=== PATIENT | female | born 1995 | race American Indian/Alaskan Native ===

== ENCOUNTER 2022-01-06 17:23 | Emergency (ER) | payer SELFPAY ==
[2022-01-06] MEDS ORDERED: IPRATROPIUM 0.02% NEBU 2.5 ML IH ONE (17:37)
[2022-01-06] MEDS ORDERED: ALBUTEROL 2.5 MG/3 ML NEBU IH ONE (17:37)
[2022-01-06] MEDS ORDERED: SODIUM CHLORIDE 0.9% 1000 ML 1,000 ML IV ONE (17:37)
--- NOTE | 2022-01-06 18:19 | XRay Report ---
CHEST 1 VIEW INDICATION / CLINICAL INFORMATION: Asthma. COMPARISON: None available. FINDINGS: SUPPORT DEVICES: None. HEART / MEDIASTINUM: No significant abnormality. LUNGS / PLEURA: No significant pulmonary or pleural abnormality. No pneumothorax. ADDITIONAL FINDINGS: No significant additional findings. IMPRESSION: 1. No acute findings. Signer Name: Wesley Umanzor MD Signed: 01/06/2022 6:15 PM Workstation Name: [id number]
[2022-01-06] MEDS ORDERED: KETOROLAC 30 MG/1 ML INJ IV ONE (19:27)
[2022-01-06 19:35] VITALS: BP 140/83
[2022-01-06 19:44] LABS: Hematocrit 39.5 % (30.3-42.9); Hemoglobin 12.9 gm/dl (10.1-14.3); Mean Corpuscular HGB Conc 33 % (30-34); Mean Corpuscular Volume 82 fl (79-97); Platelet Count 376 K/mm3 (140-440); Red Blood Count 4.82 M/mm3 (3.65-5.03); Red Cell Distribution Width 13.7 % (13.2-15.2)
[2022-01-06 20:09] LABS: Alanine Aminotransferase 12 units/L (7-56); Albumin 4.3 g/dL (3.9-5); Blood Urea Nitrogen 10 mg/dL (7-17); Hemolysis Index 3
[2022-01-06 20:17] LABS: BUN/Creatinine Ratio 14
--- NOTE | 2022-01-06 20:28 | Emergency Department Report ---
ED Asthma HPI - General Chief Complaint: Adult Asthma Stated Complaint: ASTHMA Time Seen by Provider: 01/06/22 17:37 Source: EMS Mode of arrival: Ambulatory Limitations: No Limitations - History of Present Illness Initial Comments: Asthma exacerbation receieved albuterol, solumedrol and 2 g of mag in route pt was brought in by [facility] for asthma exacerbation , was found wit o2 sat in 80s, given rt and mag and sterids, was better here staurating 100 on 2 litres, no fever no cough - Related Data Previous Rx's Medication Instructions Recorded Last Taken Type Albuterol Mdi (or & Nicu Only) 2 puff IH QID PRN #8.5 gram 01/06/22 Unknown Rx [ProAir HFA Inhaler] methylPREDNISolone [Medrol 4MG 4 mg PO DAILY #1 01/06/22 Unknown Rx DOSEPAK (21 tabs)] Allergies Allergy/AdvReac Type Severity Reaction Status Date / Time No Known Allergies Allergy Unverified 01/06/22 17:32 ED Review of Systems ROS: Stated complaint: ASTHMA Other details as noted in HPI Constitutional: denies: chills, fever Eyes: denies: eye pain, eye discharge, vision change ENT: denies: ear pain, throat pain Respiratory: denies: cough, shortness of breath, wheezing Cardiovascular: denies: chest pain, palpitations Endocrine: no symptoms reported Gastrointestinal: denies: abdominal pain, nausea, diarrhea Genitourinary: denies: urgency, dysuria, discharge Musculoskeletal: denies: back pain, joint swelling, arthralgia Skin: denies: rash, lesions Neurological: denies: headache, weakness, paresthesias Psychiatric: denies: anxiety, depression Hematological/Lymphatic: denies: easy bleeding, easy bruising ED Past Medical Hx - Past Medical History Hx Asthma: Yes - Medications Home Medications: Home Medications Medication Instructions Recorded Confirmed Last Taken Type Albuterol Mdi (or & Nicu Only) 2 puff IH QID PRN #8.5 gram 01/06/22 Unknown Rx [ProAir HFA Inhaler] methylPREDNISolone [Medrol 4MG 4 mg PO DAILY #1 01/06/22 Unknown Rx DOSEPAK (21 tabs)] ED Physical Exam - General Limitations: No Limitations General appearance: alert, anxious - Head Head exam: Present: atraumatic, normocephalic - Eye Eye exam: Present: normal appearance - ENT ENT exam: Present: mucous membranes moist - Neck Neck exam: Present: normal inspection - Respiratory Respiratory exam: Present: normal lung sounds bilaterally, wheezes, rhonchi - Cardiovascular Cardiovascular Exam: Present: normal rhythm, tachycardia. Absent: systolic murmur, diastolic murmur, rubs, gallop - GI/Abdominal GI/Abdominal exam: Present: soft, normal bowel sounds - Extremities Exam Extremities exam: Present: normal inspection - Back Exam Back exam: Present: normal inspection - Neurological Exam Neurological exam: Present: alert, oriented X3 - Psychiatric Psychiatric exam: Present: normal affect, normal mood - Skin Skin exam: Present: warm, dry, intact, normal color. Absent: rash ED Course Vital Signs 01/06/22 01/06/22 01/06/22 17:23 17:28 18:41 Temperature 97.1 F L Pulse Rate 121 H 121 H 134 H Pulse Rate [ Bilateral Throughout] Respiratory 20 20 25 H Rate Respiratory Rate [Bilateral Throughout] Blood Pressure Blood Pressure 118/78 [Right] O2 Sat by Pulse 99 99 95 Oximetry 01/06/22 01/06/22 01/06/22 18:46 18:53 19:00 Temperature Pulse Rate 133 H 133 H Pulse Rate [ 130 H Bilateral Throughout] Respiratory 23 22 Rate Respiratory 20 Rate [Bilateral Throughout] Blood Pressure 143/83 146/63 Blood Pressure [Right] O2 Sat by Pulse 95 100 Oximetry 01/06/22 01/06/22 19:16 19:30 Temperature Pulse Rate 139 H 132 H Pulse Rate [ Bilateral Throughout] Respiratory 21 22 Rate Respiratory Rate [Bilateral Throughout] Blood Pressure 146/63 140/83 Blood Pressure [Right] O2 Sat by Pulse 99 99 Oximetry ED Medical Decision Making - Lab Data Result diagrams: 01/06/22 18:58 01/06/22 18:58 - EKG Data -: EKG Interpreted by De EKG shows normal: sinus rhythm Rate: tachycardia - EKG Data Interpretation: no acute changes - Radiology Data Radiology results: report reviewed, image reviewed - Medical Decision Making was already feelig better when she came , o2 sat 99 on RA, no distress, rt given , x ray was clear work up ngetaive , father by bedside no distress noted Critical care attestation.: If time is entered above; I have spent that time in minutes in the direct care of this critically ill patient, excluding procedure time. ED Disposition Clinical Impression: Asthma exacerbation, SOB (shortness of breath) Disposition: HOME / SELF CARE / HOMELESS Is pt being admited?: No Does the pt Need Aspirin: No Condition: Stable Instructions: Asthma, Adult Prescriptions: methylPREDNISolone [Medrol 4MG DOSEPAK (21 tabs)] 4 mg PO DAILY #1 Albuterol Mdi (or & Nicu Only) [ProAir HFA Inhaler] 2 puff IH QID PRN #8.5 gram PRN Reason: Shortness Of Breath
[2022-01-06 22:43] LABS: Basophils % (Manual) 0 % (0.0-1.8); Eosinophils % (Manual) 0 % (0.0-4.3); Platelet Estimate Consistent w Auto; RBC Morphology Normal; Total Cells Counted 100
--- NOTE | 2022-01-09 18:42 | Electrocardiograph Report ---
[facility] Test Date: 2022-01-06 Test Time: 20:49:21 Pat Name: JULIO ROWAN Department: Room: Gender: F [employer]: : 1995 Requested By: GISSELLE BEEBE Order Number: [id number] Reading MD: Laya Gonzalez Measurements Intervals [place] Rate: 120 P: 42 SC: 164 QRS: 80 QRSD: 79 T: 25 QT: 317 QTc: 448 Interpretive Statements Sinus tachycardia No previous ECG available for comparison Electronically Signed On 01-09-2022 18:42:06 EDT by Laya Gonzalez
== END 2022-01-06 21:20 | disposition home or self-care (01) ==
LOC: ED 17:23
DX: J45.901 Unspecified asthma with (acute) exacerbation (principal); R06.02 Shortness of breath; Z79.899 Other long term (current) drug therapy
CPT/HCPCS: 36415; 71045; 80053; 82550; 83880; 84484; 85007; 85025; 93005; 94640; 96361; 96374; 99284; J1885; J7030; 94644